=== PATIENT | male | born 1975 | race Caucasian/White ===

== ENCOUNTER 2017-04-22 08:53 | Emergency (ER) | payer BC, OTHER ==
[2017-04-22 09:05] VITALS: TEMP 98
[2017-04-22] MEDS ORDERED: NITROGLYCERIN 0.4 MG TAB SL PRN (09:17)
[2017-04-22] MEDS ORDERED: ASPIRIN 81 MG CHEWABLE CTB PO STA (09:17)
[2017-04-22] MEDS ORDERED: SODIUM CHLORIDE 0.9% FLUSH 10 ML SOL IV PRN (09:17)
[2017-04-22] MEDS ORDERED: ASPIRIN 81 MG CHEWABLE CTB ONE (09:19)
[2017-04-22 09:40] LABS: BASOPHILS % (AUTO) 2 % (0-3); EOSINOPHILS % (AUTO) 2 % (0-9); HEMATOCRIT 48 % (39-53); MEAN CORPUSCULAR HGB CONC 36.4 gm/dl (32.0-36.0); MONOCYTES % (AUTO) 8.1 % (0-12); NEUTROPHILS % (AUTO) 53.3 % (37-80)
[2017-04-22 09:45] LABS: MEAN CORPUSCULAR VOLUME 80 fL (80-100)
[2017-04-22 09:52] VITALS: O2SAT 95
[2017-04-22 10:04] LABS: CALCIUM 9.1 mg/dl (8.5-10.1); GLOM FILT RATE 71 mL/min (>60); POTASSIUM 4.1 mMol/L (3.5-5.1); SODIUM 134 mMol/L (136-145)
[2017-04-22 11:12] VITALS: BP 117/78; PULSE 81; RESP 18
== END 2017-04-22 10:36 | disposition home or self-care (01) ==
LOC: ED 08:53
DX: R07.89 Other chest pain (principal); E11.9 Type 2 diabetes mellitus without complications; E78.5 Hyperlipidemia, unspecified; N18.2 Chronic kidney disease, stage 2 (mild); Z82.49 Family history of ischemic heart disease and other diseases of the circulatory system
CPT/HCPCS: 36415; 71010; 80048; 82550; 84484; 85025; 93005; 99284